=== PATIENT | female | born 2000 | race Caucasian/White ===

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

== ENCOUNTER 2021-06-17 02:36 | Observation (INO) | payer OTHER, MEDICAID ==
[~2021-06-17] VITALS: Ht 165.1 cm; Wt 100.2 kg
[2021-06-17 02:47] VITALS: BP 144/87
[2021-06-17 03:16] LABS: URINE BILIRUBIN NEGATIVE (Negative); URINE BLOOD NEGATIVE (Negative); URINE CLARITY CLEAR; URINE COLOR STRAW; URINE GLUCOSE-RANDOM NEGATIVE (Negative); URINE KETONES NEGATIVE (Negative); URINE NITRITE-REFLEX NEGATIVE (Negative); URINE PROTEIN NEGATIVE (Negative); URINE SPECIFIC GRAVITY <= 1.005 (1.005-1.030); URINE UROBILINOGEN 0.2 E.U./dl (0.2-1.0)
[2021-06-17 03:19] LABS: URINE LEUKOCYTES-REFLEX 2+ (Negative)
[2021-06-17 03:45] LABS: ABSOLUTE BASOPHILS 0.1 thou/uL (0.0-0.2); ABSOLUTE EOSINOPHILS 0.1 thou/uL (0.0-0.7); ABSOLUTE LYMPHOCYTES 5.1 thou/uL (0.8-5.3); ABSOLUTE MONOCYTES 0.9 thou/uL (0.0-1.2); ABSOLUTE NEUTROPHILS 8.9 thou/uL (1.6-8.1); BASOPHILS 0.5 %; EOSINOPHILS 0.5 %; HEMATOCRIT 38.1 % (37.0-47.0); HEMOGLOBIN 12.3 gm/dL (12.0-15.0); LYMPHOCYTES 33.7 %; MCHC 32.2 g/dL (28.0-37.0); MCV 86.9 fL (80.0-100.0); MONOCYTES 5.7 %; MPV 8.4 fl. (7.2-11.1); NUCLEATED RBCS 0 /100WBC; PLATELET COUNT* 424 thou/uL (150-400); POLYS 59.6 %; RBC 4.38 mil/uL (4.20-5.00); RDW-CV 14.4 % (10.5-14.5)
[2021-06-17 03:53] LABS: CALCIUM 8.8 mg/dL (8.5-10.1); CREATININE 0.7 mg/dL (0.6-1.3); POTASSIUM 3.2 mmol/L (3.5-5.1)
[2021-06-17 03:58] LABS: ALBUMIN 3.9 g/dL (3.4-5.0); TOTAL BILIRUBIN 0.2 mg/dL (<0.1-1.0); TOTAL PROTEIN 7.9 g/dL (6.4-8.2)
[2021-06-17 04:26] LABS: CASTS None Seen /LPF (None Seen); SQUAMOUS >10 Many /LPF (0-3)
[2021-06-17 04:27] LABS: CRYSTALS None Seen /LPF (None Seen); URINE RBC 0-2 Rare /HPF (0-2); YEAST-REFLEX Present (None Seen)
[2021-06-17 12:15] VITALS: BP 134/70
[2021-06-17 20:00] VITALS: BP 118/66
[2021-06-18 00:55] VITALS: BP 107/54
[2021-06-18 08:32] VITALS: BP 125/73
[2021-06-18 08:41] VITALS: BP 125/73
[2021-06-18] MEDS ORDERED: OXYCODONE HCL 55 MG PO (11:06)
[2021-06-18 12:04] VITALS: BP 125/73
[2021-06-18 12:07] VITALS: BP 125/73
--- NOTE | 2021-06-26 14:06 | PATH ---
[address] [address] PATHOLOGY RPT PROCEDURE Name: ARELY KAISER CHRISTIAN Room: [address]#: [id number] Admission: 06/17/21 Date of : 01 Discharge: 06/18/21 Report #: [id number] Path Case #: [id number] [facility] Accession Number: [id number] . 01 Material submitted: . gallbladder - GALLBLADDER . 01 Clinical history: . CHOLECYSTITIS . 02 Diagnosis: Gallbladder, excision: - Chronic cholecystitis, with focal intestinal metaplasia. - Lithiasis. - Negative for malignancy. (MONICA:ciara; 06/20/2021) MBR 06/22/2021 1349 Local . 02 Electronically signed: . Andie Richards MD, Pathologist NPI- [id number] . 01 Gross description: . Fixative: Formalin Labeled: Gallbladder Specimen received: Intact cholecystectomy Dimensions: 8.6 x 5.0 x 3.1 cm Serosa: Hurt-purple and focally hemorrhagic Lymph node: Not present Mucosa: Green and velvety Average wall thickness: 0.3 cm Calculi: Yes, the gallbladder contains numerous yellow-green calculi measuring in aggregate 4.6 x 2.4 x 2.4 cm and ranging from 0.1-3.0 cm in greatest dimension Abnormalities: None identified A1- Fugitive Detective body, fundus, and the cystic duct margin. ([facility]; 06/19/2021) A2-A5- Additional public utilities sales representative sections submitted following initial histologic examination, submitted 06/21/2021. ([facility];06/21/2021) SY/[facility] 06/21/2021 2013 Local . 02 Pathologist provided ICD-10: K80.10 . 02 CPT . 244393 Specimen Comment: A courtesy copy of this report has been sent to [phone] Specimen Comment: [place] [address] PATHOLOGY RPT PROCEDURE Name: ARELY KAISER CHRISTIAN Room: [address] M.RDwight#: [id number] Admission: 06/17/21 Date of : 01 Discharge: 06/18/21 Report #: [id number] Path Case #: [id number] Specimen Comment: A duplicate report has been generated due to demographic updates. Performed at: [facility] [address] [place] [id number] MD Samson Graham MD Phone: [phone] Performed at: [address] [facility] [id number] [id number] MD Brayan Hathaway MD Phone: [phone]
--- NOTE | 2021-06-27 10:01 | OP ---
[address] [address] OPERATIVE REPORT Name: ARELY KAISER Room: [address]#: [id number] Admission: 06/17/21 Attend Phys: Albert Queen Discharge: 06/18/21 Date of : 01 Report #: [id number] THIS REPORT FOR: cc: Fabiano Hester MD,Fabiano Jimenez,Earnest Cornelius DO ~ cc: Fabiano Hester MD DATE OF SURGERY: 06/18/2021 PREOPERATIVE DIAGNOSIS: Symptomatic cholelithiasis. POSTOPERATIVE DIAGNOSIS: Symptomatic cholelithiasis. PROCEDURE: Laparoscopic cholecystectomy with immunofluorescence imaging. SURGEON: Earnest Jimenez DO EDGING MACHINE OPERATOR: Israel Roper DO, PGY1. SECOND FITTER WELDER: Student, Dr. Balaji Wright, MS3. ANESTHESIA: General endotracheal and TAP blocks. ESTIMATED BLOOD LOSS: Less than 20 mL. COMPLICATIONS: None. DESCRIPTION OF PROCEDURE: After obtaining proper consents and discussing risks and complications with the patient, she was taken to the operating room, laid in the supine position and administered general endotracheal anesthetic. She was then prepped and draped in the usual sterile fashion. A time-out was performed. We confirmed the appropriate patient and procedure. Preoperative antibiotics had been given. SCDs were in place. We then made a small supraumbilical skin incision with a #11 scalpel blade. This was carried down through the skin into the subcutaneous tissue using electrocautery for hemostasis. Once the fascia was encountered, it was incised along the midline, grasped and elevated with Zabrina clamps and divided further. The peritoneum was then bluntly opened using a hemostat. A finger was placed inside the peritoneal cavity to assure there were no piedad-incisional adhesions. Next, 2-0 Vicryl sutures were placed in a mulgri-qx-relmk fashion to secure the Minda trocar, which was then inserted and insufflation was begun. Once insufflation was complete, full visual inspection of the anterior abdominal organs was performed. This revealed a distended thick walled appearing gallbladder with some pericholecystic fluid. There were no other gross abnormalities identified. We then placed the patient in reverse Trendelenburg position and rotated her to the left. We placed three more 5 [place] [address] OPERATIVE REPORT Name: DEDEMARKELARELY [address]: [address]#: [id number] Admission: 06/17/21 Attend Phys: Albert Queen Discharge: 06/18/21 Date of : 01 Report #: [id number] trocars. We were then able to grasp and elevate the gallbladder. Using immunofluorescence imaging, I was able to identify the common hepatic duct and common bile duct as well as the cystic duct prior to doing any dissection of the hepatoduodenal ligament. Once the hepatoduodenal ligament was stripped down from the gallbladder, I was able to identify the cystic duct and cystic artery as they coursed directly into the gallbladder. Using immunofluorescence imaging as well as regular imaging, I was able to assure no injury to any of the surrounding organs and we dissected the cystic duct and cystic artery free. I obtained a critical view of safety. We then clipped the cystic duct and cystic artery proximally and distally and then divided between clips. The gallbladder was then removed from the liver bed using electrocautery. Once this was complete, the gallbladder was placed into an Endopouch. We then checked the cystic duct and cystic artery stumps and liver bed for any leak or bleeding, none was identified. We then stopped the insufflation. The air was released. The trocars were removed under direct vision and then we had to open the fascial opening of the umbilical incision slightly larger in order to get the gallbladder out because there was quite a large stone. Once this was removed, we then closed the umbilical fascia using 5 interrupted 0 Vicryl sutures in a ylygie-ud-akqii fashion. Skin incisions were all closed using 4-0 Monocryl in subcuticular stitches and Dermabond. TAP blocks were then performed by Anesthesia. The patient was then awakened in the operating room and transported to recovery room in stable condition. <ELECTRONICALLY SIGNED> By: Earnest Jimenez DO 06/27/21 1001 1106 1118Avee Jimenez DO /nt
== END 2021-06-18 17:00 | disposition home or self-care (01) ==
LOC: M.ERS 02:36 → M.TBA-ER 05:09 → M.TBA 06-18 16:10
PROVIDERS: Emergency Medicine; ADMIT Internal Medicine; ATTEND Internal Medicine
DX: K80.20 Calculus of gallbladder without cholecystitis without obstruction (principal); Z20.822 Contact with and (suspected) exposure to COVID-19; Z79.899 Other long term (current) drug therapy